=== PATIENT | male | born 2000 | race Two or more races ===

== ENCOUNTER 2020-06-18 10:00 | Emergency (ER) | payer OTHER ==
[~2020-06-18] VITALS: Ht 170.2 cm; Wt 51.7 kg
[2020-06-18] MEDS ORDERED: AMOX1TAB5 (10:11)
[2020-06-18] MEDS ORDERED: [UNRECOGNIZED DRUG - OTHER] (10:12)
== END 2020-06-18 14:52 | disposition home or self-care (01) ==
LOC: EMR PED 10:00
DX: B27.80 Other infectious mononucleosis without complication (principal); Z03.818 Encounter for observation for suspected exposure to other biological agents ruled out

== ENCOUNTER 2020-06-20 09:42 | Inpatient (IN) | payer OTHER ==
[~2020-06-20] VITALS: Ht 170.2 cm; Wt 52.0 kg
[~2020-06-20 09:42] MED LIST: AMOX1TAB5; [UNRECOGNIZED DRUG - OTHER]
--- NOTE | 2020-06-20 10:04 | NUR ---
SE RECIBE PTE ALERTA Y ORIENTADO X3,EFIERE TENER DOLOR EN AL GARGANTA ,REFIERE QUE VINO EN MILLER ANTERIORES NO FERRER SYLVIA TIENE LA GARGANTA CON AMPOLLAS LIZANDRO.
--- NOTE | 2020-06-20 11:23 | NUR ---
. CADET EDUCA A FAMILIAR SOBRE TX MEDICO ESTA REFIERE ENTENDER. SE ELDA MUESTRAS DELAB UTILIZANDO MEDIDAS ASETPICAS. SE COLOCA H/L A PTE EL CUAL SE NCUENTRA PATENTE Y LEESA DE EDEMA. SE ADMINISTRAN MEDS A PTE MARV ORDEN MEDICA, PTE TOLERA LOS MISMOS. SE NOTIFICA ESTUDIO DE RX PENDIENTE A REALIZAR Y SE COLOCA A PTE EN PEDRO. PTE SE CONTINUA MONITORIANDO POR CAMBIOS.
--- NOTE | 2020-06-20 16:41 | NUR ---
4P.M.SE LE AN TEMP.=101.4F ELEVADA,SE LE NOTIFICO AL EL CUAL LE ORDENA TYLENOL 325MG P.O.KENNY 2 TABLETAS. 4:15P.M.SE LE ADMINISTRA SOLUMEDROL 40MG I.V. 4:20P.M.SE LE AN MUESTRA DE COVID 19 MOLECULAR IN SE AN CON MEDIDAS ASEPTI- JAIMEE Y SE ENVIA AL LABORATORIO,PACIENTE ALERTA,ACTIVO,ORIENTADO EN LAS 3 ESFERAS ESTA CON [facility] PARA TRAGAR Y TOLERAR COMIDA.
== END 2020-06-26 14:57 | disposition home or self-care (01) | DRG 153 ==
LOC: EMR PED 09:42 → MEDI 17:10 → SEC-K 17:10 → MEDI 18:15 → PED 06-21 17:21
PROVIDERS: ADMIT Emergency Medicine Pediatric Emergency Medicine; ATTEND Emergency Medicine Pediatric Emergency Medicine
PROC: BW40ZZZ Ultrasonography of Abdomen (ICD-10-PCS; principal; 2020-06-22)
DX: J03.80 Acute tonsillitis due to other specified organisms (principal); B27.80 Other infectious mononucleosis without complication; E86.0 Dehydration; R79.82 Elevated C-reactive protein (CRP); B96.1 Klebsiella pneumoniae [K. pneumoniae] as the cause of diseases classified elsewhere; J35.01 Chronic tonsillitis; Z20.828 Contact with and (suspected) exposure to other viral communicable diseases
CPT/HCPCS: 70498

== ENCOUNTER 2021-05-22 08:13 | Emergency (ER) | payer OTHER ==
[~2021-05-22] VITALS: Ht 167.6 cm; Wt 56.7 kg
[2021-05-22] MEDS ORDERED: KETO10TA2 PO (12:07)
[2021-05-22] MEDS ORDERED: AMOX-CLAV 875-1 EAC1 PO (12:07)
[2021-05-22] MEDS ORDERED: INTESTINEX680 M1 PO (12:07)
[2021-05-22] MEDS ORDERED: PEPCID AC20 MG PO (12:07)
== END 2021-05-22 12:20 | disposition home or self-care (01) ==
LOC: ER 08:13
DX: J03.90 Acute tonsillitis, unspecified (principal); Z03.818 Encounter for observation for suspected exposure to other biological agents ruled out

== ENCOUNTER 2021-08-17 09:12 | Emergency (ER) | payer OTHER ==
[~2021-08-17] VITALS: Ht 167.6 cm; Wt 52.6 kg
[~2021-08-17 09:12] MED LIST changes: +AMOX-CLAV 875-1 EAC1 PO; +INTESTINEX680 M1 PO; +KETO10TA2 PO; +PEPCID AC20 MG PO
== END 2021-08-17 12:34 | disposition home or self-care (01) ==
LOC: ER 09:12
DX: R07.89 Other chest pain (principal); M54.50 Low back pain, unspecified

== ENCOUNTER 2022-08-06 07:04 | Emergency (ER) | payer OTHER ==
[~2022-08-06] VITALS: Ht 165.1 cm; Wt 52.2 kg
[2022-08-06] MEDS ORDERED: CIPRO500 MG PO (11:27)
== END 2022-08-06 14:31 | disposition home or self-care (01) ==
LOC: ER 07:04
DX: N39.0 Urinary tract infection, site not specified (principal)

== ENCOUNTER 2023-05-01 07:19 | Emergency (ER) | payer OTHER ==
[~2023-05-01] VITALS: Ht 167.6 cm; Wt 49.0 kg
[~2023-05-01 07:19] MED LIST changes: +CIPRO500 MG PO
[2023-05-01] MEDS ORDERED: KETO10TA2 PO (09:08)
[2023-05-01] MEDS ORDERED: CYCLOBENZAPRINE10 MG PO (09:08)
== END 2023-05-01 09:51 | disposition home or self-care (01) ==
LOC: ER 07:19
DX: M54.50 Low back pain, unspecified (principal)

== ENCOUNTER 2023-06-29 04:23 | Emergency (ER) | payer OTHER ==
[~2023-06-29] VITALS: Ht 167.6 cm; Wt 50.8 kg
[~2023-06-29 04:23] MED LIST changes: +CYCLOBENZAPRINE10 MG PO
[2023-06-29] MEDS ORDERED: ZITHROMAX500 MG PO (05:11)
== END 2023-06-29 05:27 | disposition home or self-care (01) ==
LOC: ER 04:23
DX: A54.89 Other gonococcal infections (principal)